=== PATIENT | male | born 1940 | race Caucasian/White ===

== ENCOUNTER 2016-07-10 07:12 | Observation (INO) | payer OTHER, BC ==
[2016-07-03 09:59] VITALS: BMI 23.0
--- NOTE | 2016-07-03 10:36 | PAT Medication Instructions ---
Service Date Jul 03, 2016. Current Home Medication List Acetaminophen (Tylenol), 1,000 MG PO Q8 PRN for Pain Aspirin (Aspirin Ec), 81 MG PO QAM Atorvastatin (Lipitor), 80 MG PO HS Azelastine Hcl (Astepro), 2 SPRY ANOOP DAILY PRN for PRN Dutasteride (Avodart), 0.5 MG PO HS Fluticasone Prop/Salmeterol (Advair Diskus 500/50 60 Dose), 1 PUFF INH BID Fluticasone Propionate (Nasal) (Flonase Allergy Relief), 1 SPRAY ANOOP DAILY PRN for PRN Furosemide (Lasix), 20 MG PO QAM Isosorbide Mononitrate Ext Rel (Imdur Ext Rel), 60 MG PO QAM Metoprolol Succ (Toprol Xl) (Toprol-Xl), 75 MG PO QAM Nitroglycerin (Nitrostat), 0.4 MG UT PRN Tiotropium Tyner (Spiriva Handihaler), 1 CAP INH QAM Medication Instructions For Your Scheduled Surgery - Per surgeon/cardiology instructions: Aspirin (Aspirin Ec), 81 MG PO QAM - Hold the following medications the morning of surgery: Furosemide (Lasix), 20 MG PO QAM - Take the following medications the morning of surgery with a sip of water: Fluticasone Prop/Salmeterol (Advair Diskus 500/50 60 Dose), 1 PUFF INH BID Fluticasone Propionate (Nasal) (Flonase Allergy Relief), 1 SPRAY ANOOP DAILY PRN for PRN Tiotropium Tyner (Spiriva Handihaler), 1 CAP INH QAM Isosorbide Mononitrate Ext Rel (Imdur Ext Rel), 60 MG PO QAM Metoprolol Succ (Toprol Xl) (Toprol-Xl), 75 MG PO QAM Acetaminophen (Tylenol), 1,000 MG PO Q8 PRN for Pain (if needed) Nitroglycerin (Nitrostat), 0.4 MG UT PRN (if needed) Azelastine Hcl (Astepro), 2 SPRY ANOOP DAILY PRN for PRN (if needed) - Take the following medications as scheduled the night before surgery: Fluticasone Prop/Salmeterol (Advair Diskus 500/50 60 Dose), 1 PUFF INH BID Fluticasone Propionate (Nasal) (Flonase Allergy Relief), 1 SPRAY ANOOP DAILY PRN for PRN Dutasteride (Avodart), 0.5 MG PO HS Atorvastatin (Lipitor), 80 MG PO HS Acetaminophen (Tylenol), 1,000 MG PO Q8 PRN for Pain (if needed) Nitroglycerin (Nitrostat), 0.4 MG UT PRN (if needed) Azelastine Hcl (Astepro), 2 SPRY ANOOP DAILY PRN for PRN (if needed) If you have any questions please call us at [phone] (Carol Abreu PA-C) or [phone] or [phone]
[2016-07-03 11:29] LABS: BASO % 0.5 %; BASO ABS # 0.03 K/uL (0-0.2); COMPLETE YES; HEMATOCRIT 44.6 % (42-52); IG% 0.2 %; LYMPH % 31.6 %; LYMPH ABS # 2.04 K/uL (1.2-3.4); MEAN CELL VOLUME 90.3 fL (80-100); MEAN CORPUSCULAR HGB CONC 34.3 g/dl (32-36); MEAN PLATELET VOLUME 10.6 fL (7.4-10.4); MONO % 7.1 %; NEUT % 56.6 %; PLATELET COUNT 196 K/uL (130-400); RED BLOOD COUNT 4.94 M/uL (4.7-6.1); WHITE BLOOD COUNT 6.45 K/uL (4.8-10.8)
[2016-07-03 11:36] LABS: URINE APPEARANCE CLEAR (CLEAR); URINE BILIRUBIN NEG (NEG); URINE COLOR YELLOW; URINE NITRITE NEG (NEG); URINE PH 6.5 (4.5-7.5); URINE SPECIFIC GRAVITY 1.001 (1.000-1.030); UROBILINOGEN NEG (NEG)
[2016-07-03 11:40] LABS: INR 1.1 (0.9-1.1); PARTIAL THROMBOPLASTIN RATIO 1.1; PROTHROMBIN TIME (PATIENT) 11.3 SECONDS (9.0-12.0)
[2016-07-03 11:42] LABS: MANUAL MICROSCOPIC REQUIRED? NO; REVIEW REQ? NO
[2016-07-03 11:47] LABS: BUN/CREATININE RATIO 17.2 (10-20); CALCIUM 9.2 mg/dl (8.5-10.1); CREATININE 0.87 mg/dl (0.60-1.40); POTASSIUM 4.2 mmol/L (3.5-5.1)
[2016-07-10] VITALS (9 sets, daily range): BP systolic 121–140; BP diastolic 68–86; PULSE 62–78; TEMP 36.3–36.7; O2SAT 93–97; Ht 170.2 cm; Wt 69.0 kg
[~2016-07-10] VITALS: Ht 170.2 cm; Wt 69.0 kg
[~2016-07-10 07:12] MED LIST: ACET-1256 PO; ADVIN50/60 INH; ASPI81TA28 PO; ATOR-26 PO; AZEL0.15 NAE; CIPROFLOXACIN / D5W 400 MG IV SCH; DUTA0.5C PO; FLUT0.15 NAE; FURO-85 PO; ISOS60TA25 PO; METO50TA7 PO; NTRGSL/4 UT; SPRIN/30 INH
[2016-07-10] MEDS ORDERED: DEXAMETHASONE SOD INJ 4 MG/ML VIAL ONE (07:40)
[2016-07-10] MEDS ORDERED: FENTANYL CITRATE INJ 50 MCG/1 ML 2 ML VIAL ONE (07:40)
[2016-07-10] MEDS ORDERED: MIDAZOLAM HCL 1 MG/ML 2ML VIAL ONE (07:40)
[2016-07-10] MEDS ORDERED: PROPOFOL IV EMULSION 10 MG/ML 20 ML VIAL IV ONE (07:40)
[2016-07-10] MEDS ORDERED: ONDANSETRON INJ 2 MG/ML 2 ML VIAL ONE (07:40)
[2016-07-10] MEDS ORDERED: LIDOCAINE HCL 2% 2 ML VIAL (20MG/ML) ONE (07:40)
--- NOTE | 2016-07-10 08:16 | History & Physical Bridge Note ---
H&P Re-Evaluation Bridge Note: I have examined the patient, reviewed the History & Physical and in the interval since the performance of the History & Physical I have noted the following changes of clinical significance: No changes noted
[2016-07-10] MEDS ORDERED: LACTATED RINGER'S 1000ML 1,000 ML IV PRN (08:24)
[2016-07-10] MEDS ORDERED: FENTANYL CITRATE INJ 50 MCG/1 ML 2 ML VIAL IV PRN (08:30)
[2016-07-10] MEDS ORDERED: ONDANSETRON INJ 2 MG/ML 2 ML VIAL IV PRN ×2 (08:30→10:00)
[2016-07-10] MEDS ORDERED: PHENYLEPHRINE 100MCG/ML 5ML SYR ONE (09:07)
[2016-07-10] MEDS ORDERED: EpHEDrine SULFATE 50MG/5ML SYR ONE (09:07)
--- NOTE | 2016-07-10 09:55 | [facility] Operative Report ---
Operative Report Operative Date Jul 10, 2016. Pre-Operative Diagnosis incomplete emptying bph w obstruction Post-Operative Diagnosis same Surgeon Dr Interiano Estimated Blood Loss 50ml Findings obstructed prostate Specimens NONE Anesthesia general I attest to the content of the Intraoperative Record and any orders documented therein. Any exceptions are noted below.
[2016-07-10] MEDS ORDERED: ACETAMINOPHEN 650 MG SUPP PR PRN (10:00)
[2016-07-10] MEDS ORDERED: ACETAMINOPHEN 325 MG TAB PO PRN (10:00)
[2016-07-10] MEDS ORDERED: HYDROCODONE/ACETAMOPHEN 5/325MG TAB PO PRN (10:00)
--- NOTE | 2016-07-10 10:18 | Anesthesiology Progress Note ---
Anesthesia Post Op Note Date & Time Jul 10, 2016 at 10:18 Vital Signs Pain Intensity: 1 Vital Signs Past 12 Hours Date Time Temp Pulse Resp B/P Pulse Ox O2 Delivery O2 Flow Rate FiO2 07/10/16 10:10 69 16 120/70 100 Mask 10 07/10/16 10:00 77 16 137/76 100 Mask 10 07/10/16 09:50 36.9 72 16 118/72 100 Mask 10 07/10/16 07:45 36.7 68 20 140/86 96 Room Air Notes Mental Status: alert / awake / arousable, participated in evaluation Pt Amnestic to Procedure: Yes Nausea / Vomiting: adequately controlled Pain: adequately controlled Airway Patency, RR, SpO2: stable & adequate BP & HR: stable & adequate Hydration State: stable & adequate Anesthetic Complications: no major complications apparent Pt doing very well.
[2016-07-10] MEDS ORDERED: IV FLUIDS COMPLETED PRN (11:00)
[2016-07-10] MEDS: D5W AND 1/2NSS + 20MEQ KCL 1,000 ML IV SCH ×2 (14:10→22:15)
--- NOTE | 2016-07-10 14:10 | OPERATIVE REPORT ---
DATE OF OPERATION: 07/10/2016 PREOPERATIVE DIAGNOSIS: Benign prostatic hypertrophy with incomplete emptying. POSTOPERATIVE DIAGNOSIS: Same. PROCEDURE PERFORMED: TURP, bipolar with button. SURGEON: Martin Interiano MD ANESTHESIA: General. INDICATIONS FOR PROCEDURE: The patient is a 75-year-old male who has significant obstructive and irritative voiding symptoms with an increasing residual on 4-[id number] inhibitors. We discussed the options and elected to proceed with TURP. DESCRIPTION OF THE PROCEDURE: The patient was taken to the operating room where general anesthesia was administered. He was placed in dorsal lithotomy position with Venodyne stockings and was given antibiotics preoperatively. He was prepped and draped in the usual sterile fashion and a 21-Polish cystoscope was passed per urethra and the bladder was examined. He did have a high bladder neck with some intravesical prostate. The resectoscope was placed and using the button, the bladder neck was dissected and opened up and then the right lateral wall and the left lateral wall resected. He had a significant amount of anterior tissue that was also resected. It was cauterized with the button TURP. At the end of the procedure, there was a clear channel from the verumontanum into the bladder. Great care was taken not to cut beyond the verumontanum and there was no significant bleeding. A 22 Zee catheter with 30 mL balloon was placed with a catheter guide and the patient was transferred to the recovery room in stable condition. I attest to the content of the Intraoperative Record and any orders documented therein. Any exceptio ns are noted below.
[2016-07-11 03:50] VITALS: BP 134/77; PULSE 68; TEMP 36.6; O2SAT 93
[2016-07-11 07:20] VITALS: BP 146/79; PULSE 67; TEMP 36.4; O2SAT 93
[2016-07-11] MEDS: D5W AND 1/2NSS + 20MEQ KCL 1,000 ML IV SCH (08:03)
--- NOTE | 2016-07-11 08:03 | Anesthesiology Progress Note ---
Anesthesia Post Op Note Date & Time Jul 11, 2016 at 08:02 Vital Signs Pain Intensity: 0.0 Vital Signs Past 12 Hours Date Time Temp Pulse Resp B/P Pulse Ox O2 Delivery O2 Flow Rate FiO2 07/11/16 07:20 36.4 67 19 146/79 93 Room Air 07/11/16 03:50 36.6 68 16 134/77 93 Room Air 07/10/16 23:03 36.7 75 18 123/70 95 Room Air 07/10/16 22:15 Room Air 07/10/16 20:04 36.4 78 16 126/73 96 Room Air Notes Mental Status: alert / awake / arousable, participated in evaluation Pt Amnestic to Procedure: Yes Nausea / Vomiting: adequately controlled Pain: adequately controlled Airway Patency, RR, SpO2: stable & adequate BP & HR: stable & adequate Hydration State: stable & adequate Anesthetic Complications: no major complications apparent
--- NOTE | 2016-07-11 10:25 | Progress Note ---
Subjective Date of Service: Jul 11, 2016. Subjective Pt evaluation today including: conversation w/ patient, physical exam Voiding: man catheter in place 75 year old male s/p TURP POD#[address] Interiano Doing well post op. Denies pain Tolerating diet Ambulating in room IVF infusing Man intact draining light pink/hayden urine no clots. Review of Systems Constitutional: No chills, No fever Eyes: No worsening of vision ENT: No hearing loss Respiratory: No cough, No dyspnea on exertion, No shortness of breath Cardiac: No chest pain Abdomen: No constipation, No diarrhea, No nausea, No pain, No vomiting Male : + see HPI Neurologic: No memory loss Psychiatric: No depression symptoms Heme: No abnormal bleeding/bruising Endo: No fatigue Objective Vital Signs Date Time Temp Pulse Resp B/P Pulse Ox O2 Delivery O2 Flow Rate FiO2 07/11/16 07:23 Room Air 07/11/16 07:20 36.4 67 19 146/79 93 Room Air 07/11/16 03:50 36.6 68 16 134/77 93 Room Air 07/10/16 23:03 36.7 75 18 123/70 95 Room Air 07/10/16 22:15 Room Air 07/10/16 20:04 36.4 78 16 126/73 96 Room Air 07/10/16 15:45 93 Room Air 07/10/16 15:26 36.3 71 16 136/81 93 Room Air 07/10/16 13:55 68 16 125/73 95 Nasal Cannula 2.0 07/10/16 12:55 62 16 123/74 96 Nasal Cannula 2.0 07/10/16 11:55 71 18 122/68 97 Nasal Cannula 2.0 07/10/16 10:55 Nasal Cannula 2.0 07/10/16 10:55 36.5 65 18 121/70 94 Nasal Cannula 2.0 07/10/16 10:55 95 Nasal Cannula 2.0 07/10/16 10:35 36.9 69 16 127/74 98 Nasal Cannula 2 07/10/16 10:25 36.9 69 16 118/70 98 Nasal Cannula 2 Physical Exam General Appearance: WD/WN, no apparent distress ENT: hearing grossly normal Neck: no JVD Respiratory/Chest: no respiratory distress, no accessory muscle use Abdomen: soft Extremities: normal inspection, no pedal edema, no calf tenderness Neurologic/Psychiatric: alert, normal mood/affect, oriented x 3 Skin: normal color, warm/dry Assessment and Plan BPH s/p TURP Doing well Man draining clear light pink/hayden urine no clots- personally removed man after deflating 30cc balloon without difficulties. Pt ok to d/c home once he voids. D/C IVF and IV access once he voids. Follow up in office as previously scheduled.
[2016-07-11] MEDS ORDERED: SULF800T23 PO (10:26)
--- NOTE | 2016-07-11 10:28 | Discharge Instructions ---
Discharge Instructions Date of Service Jul 11, 2016. Admission Reason for Admission: Benign Prostatic Hypertrophy Discharge Discharge Diagnosis / Problem: Benign Prostatic hyperplasia Discharge Goals Goal(s): Improve function, Prevent Disease Progression Activity Recommendations Activity Limitations: per Instructions/Follow-up section . Instructions / Follow-Up Instructions / Follow-Up 1. Do not lift >15lbs x 6 weeks. 2. No heavy exercise x 6 weeks. You may engage in light activity such as walking and stairs as tolerated. 3. Hold Aspirin for 3-5 days. May resume once urine is clear yellow. 5. Finish all of the antibiotic you have been prescribed. 7. Follow-up as scheduled. Please call our office at [phone] if you need to reschedule for any reason. . Current Hospital Diet Hospital Diet(s): Regular Diet Discharge Diet Recommended Diet: Regular Diet Procedures Procedures Performed: Cystoscopy with Bipolar Button Transurethral Resection Prostate Pending Studies Studies pending at discharge: no Medical Emergencies . Who to Call and When: Medical Emergencies: If at any time you feel your situation is an emergency, please call 911 immediately. . Non-Emergent Contact Non-Emergency issues call your: Primary Care Provider, Urologist Call Non-Emergent contact if: temperature is above 101.5 . . "Provider Documentation" section prepared by Nga Maynard. VTE Core Measure Inpt VTE Proph given/why not?: Unfractionated heparin SQ, SCD's
[2016-07-11 10:39] VITALS: BP 146/79; PULSE 67; TEMP 36.4; O2SAT 93
--- NOTE | 2016-07-14 07:11 | DISCHARGE SUMMARY ---
REASON FOR THE ADMISSION: Benign prostatic hypertrophy. PRINCIPAL PROCEDURE: TURP. HISTORY OF PRESENTATION AND HOSPITAL COURSE: The patient is a 75-year-old male with significant obstructive and irritative voiding symptoms and high residual we elected to do a TURP on. He was admitted, had a TURP, went without complication. His urine was clear. The day after the procedure his catheter was removed and he was able to void and he was discharged to home in stable condition.
== END 2016-07-11 11:49 | disposition home or self-care (01) ==
LOC: ENRESERVTM → ENRESERVDT → C.ACU 07:12 → C.MSW 10:00
PROVIDERS: ADMIT Urology; ATTEND Urology
DX: N40.1 Benign prostatic hyperplasia with lower urinary tract symptoms (principal); R33.9 Retention of urine, unspecified; E78.5 Hyperlipidemia, unspecified; Z87.891 Personal history of nicotine dependence; Z79.82 Long term (current) use of aspirin; Z82.49 Family history of ischemic heart disease and other diseases of the circulatory system